=== PATIENT | female | born 1970 | race Caucasian/White ===

== ENCOUNTER 2016-10-28 08:12 | Day surgery (SDC) | payer MEDICARE, OTHER ==
--- NOTE | ~2016-10-28 | EGD ---
EGD REPORT [facility] [address] [id number] NAME: CASSANDRA VACA : [birth year] STATUS : REG [facility]#: [id number] AGE: 45 ADM/REG DATE : 10/28/16 MR#: [id number] REPORT SERV DATE: 10/28/16 DICTATED BY: JOSEPH LARSEN DATE: 10/28/16 REPORT STATUS : Draft [facility]: [facility] DATE: 10/28/16 [facility] Patient Name: Cassandra Vaca Date of : 1970 Attending MD: JOSEPH LARSEN MD Procedure Date No Time: 10/28/2016 Procedure: Colonoscopy Indications: Surveillance: Personal history of adenomatous polyps on last colonoscopy 5 years ago, FH of Colonic Polyps - 1st degree relative Referring MD: GABINO ALFONSO Medicines: Propofol per Anesthesia Complications: No immediate complications. Procedure: Pre-Anesthesia Assessment: - ASA Grade Assessment: III - A patient with severe systemic disease. After I obtained informed consent, the scope was passed under direct vision. Throughout the procedure, the patient's blood pressure, pulse, and oxygen saturations were monitored continuously. The [facility] [id number] was introduced through the anus and advanced to the terminal ileum. The colonoscopy was performed without difficulty. The patient tolerated the procedure well. The quality of the bowel preparation was good. Findings: The perianal and digital rectal examinations were normal. The terminal ileum appeared normal. The colon (entire examined portion) appeared normal. A sessile polyp was found in the proximal transverse colon. The polyp was 3 mm in size. The polyp was removed with a cold snare. Resection and retrieval were complete. Non-bleeding internal hemorrhoids were found during retroflexion and were mild, small and Grade I (internal hemorrhoids that do not prolapse). Impression: - The examined portion of the ileum was normal. - The entire examined colon is normal. - One 3 mm polyp in the proximal transverse colon. Resected and retrieved. - Non-bleeding internal hemorrhoids. Recommendation: - Patient has a contact number available for emergencies. The signs and symptoms of potential delayed complications were discussed with the patient. Return to normal activities tomorrow. Written discharge EGD REPORT [address] [address] NAME: CASSANDRA VACA : [birth year] [place]US [place] [facility] [place] [id number] AGE: 45 ADM/REG DATE : 10/28/16 MR#: [id number] REPORT SERV DATE: 10/28/16 DICTATED BY: JOSEPH LARSEN DATE: 10/28/16 REPORT STATUS : Draft TRANSCRIBED BY: [employer] DATE: 10/28/16 instructions were provided to the patient. - Return to previous diet. - Continue present medications. - Await pathology results. - Repeat colonoscopy in 3 - 5 years for surveillance based on pathology results. - Return to my office as previously scheduled. - Discharge patient to home. Procedure Code(s): --- Professional --- 29504, Colonoscopy, flexible, proximal to splenic flexure; with removal of tumor(s), polyp(s), or other lesion(s) by snare technique Diagnosis Code(s): --- Professional --- K64.0, First degree hemorrhoids D12.3, Benign neoplasm of transverse colon Z86.010, Personal history of colonic polyps Z83.71, Family history of colonic polyps CPT copyright 2013 [employer] [place] [employer]. All rights reserved. The codes documented in this report are preliminary and upon chief nurse review may be revised to meet current compliance requirements. Joseph Larsen MD JOSEPH LARSEN MD 10/28/2016 10:45 AM This report has been signed electronically. Number of Addenda: 0 Note Initiated On: 10/28/2016 9:42 AM Scope Withdrawal Time 0 hours 16 minutes 28 seconds [id number] [place] [id number]
[~2016-10-28 08:12] MED LIST: ALTA2.5 PO; CALTRA600D PO; CLARIT10 PO; D100 PO; ETHINYL ESTRADIOL PO; LEVONORGESTREL PO; LEVOTHYROXIN150 MCG PO; NOVOPEN SC; PRAVAC PO; TRESIBA FL200 UNIT/1 SC
== END 2016-10-28 23:59 | disposition home or self-care (01) ==
LOC: DMU 08:12
PROVIDERS: Internal Medicine Gastroenterology
PROC: 0DBL8ZZ Excision of Transverse Colon, Via Natural or Artificial Opening Endoscopic (ICD-10-PCS; principal; 2016-10-28 09:30)
DX: Z12.11 Encounter for screening for malignant neoplasm of colon (principal); D12.3 Benign neoplasm of transverse colon; K64.8 Other hemorrhoids; I10 Essential (primary) hypertension; E03.9 Hypothyroidism, unspecified; L40.9 Psoriasis, unspecified; E10.8 Type 1 diabetes mellitus with unspecified complications; E78.00 Pure hypercholesterolemia, unspecified; G40.909 Epilepsy, unspecified, not intractable, without status epilepticus; J30.2 Other seasonal allergic rhinitis; Z83.71 Family history of colonic polyps; Z86.010 Personal history of colon polyps; Z79.899 Other long term (current) drug therapy; Z79.4 Long term (current) use of insulin
CPT/HCPCS: 82962; 84703; 88305